=== PATIENT | male | born 1990 | race Caucasian/White ===

== ENCOUNTER 2022-04-03 19:37 | Emergency (ER) | payer BC, OTHER ==
[2022-04-03] MEDS ORDERED: KETOROLAC 30 MG/ML VIAL IVP STA (20:18)
--- NOTE | 2022-04-03 20:22 | ED Back Pain ---
General Chief Complaint: Back Problems Stated Complaint: LOWER BACK PAIN Nursing Triage Note: PT ARRIVAL TO ER VIA PRIVATE VEHICLE WITH COMPLAINTS OF BACK PAIN SINCE 10 AM. PAIN TO BOTH SIDES ON LOWER BACK. PT DENIES TRAUMA OR INJURY. PAIN STARTED THIS AM. PAIN EASED UP AND PATIENT WAS ABLE TO NAP EARLIER, BUT WHEN GETTING UP FROM BED, PAIN IMMEDIATLEY STARTED AGAIN. PT HAD THIS HAPPEN A WHILE BACK AND SCANS AND XRAYS FOUND NOTHING. PAIN AT A 9/10 AND IS SHARP/STABBING. Source of Information: Patient (SOMEWHAT VAGUE HISTORIAN) History of Present Illness Date Seen by Provider: Apr 03, 2022 Time Seen by Provider: 20:10 Initial Comments PT ARRIVES VIA POV--HERE VISITING FROM OUT OF TOWN C/O BILATERAL FLANK PAIN SINCE 10 AM TODAY PAIN RADIATES AROUND TO BOTH SIDES OF ABDOMEN + SWEATS AND NAUSEA WHEN PAIN IS BAD HAS HAD DECREASED URINE OUTPUT TODAY, BUT NO PAIN ON URINATION. STATES HE HAS BEEN DRINKING ALOT OF WATER. NO INJURY OR UNUSUAL ACTIVITY. NO PARESTHESIAS OR MOTOR DEFICITS NO LOSS OF BOWEL OR BLADDER CONTROL STATES HE HAD THIS SAME THING ABOUT A YEAR AGO, AND WENT TO ER AND HE STATES THEY DIDN'T FIND ANYTHING. STATES THEY GAVE HIM MUSCLE RELAXANTS AND PAIN PILLS AND HIS SYMPTOMS WENT AWAY. STATES HE IS HERE AT HIS [facility], AND FOUND SOME "HYDROCODONE 100 MG TABLETS" IN THEIR BATHROOM CABINET AND HE TOOK ONE AROUND 1300 TODAY--NO RELIEF. Other Comments PCP IN [place], [place] Allergies and Home Medications Allergies Coded Allergies: No Known Drug Allergies (Unverified , 04/03/22) Patient Home Medication List Cyclobenzaprine HCl (Cyclobenzaprine HCl) 10 Mg Tablet, 10 MG PO Q8H PRN for SPASMS Prescribed by: SEBASTIAN GARCIA on 04/03/222134 Naproxen (Naproxen) 500 Mg Tablet.dr, 500 MG PO BID Prescribed by: SEBASTIAN GARCIA on 04/03/222134 Review of Systems Constitutional: see HPI Respiratory: no symptoms reported Cardiovascular: no symptoms reported Gastrointestinal: see HPI Genitourinary: see HPI Musculoskeletal: see HPI Skin: no symptoms reported Psychiatric/Neurological: No Symptoms Reported Past Ehztqxg-Vbmtgk-Jvxglg Hx Patient Social History Tobacco Use?: Yes Tobacco type used: Cigarettes Smoking Status: Current Everyday Smoker Use of E-Cig and/or Vaping dev: No 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, ADDERALL ABUSE TEEN) Substance type: Misuse of prescript meds, Marijuana Alcohol Use?: Yes Alcohol type: Beer, Hard Liquor Alcohol Frequency: Once in a while Pt feels they are or have been: No Immunizations Up To Date Influenza Vaccine Up-to-Date: No; Not Current Past Medical History Surgeries: Yes (WISDOM TEETH, CYST FROM AXILLA, COLONOSCOPY/POLYPECTOMY) Adenoidectomy, Tonsillectomy Respiratory: No Cardiac: Yes Hypertension Neurological: No Genitourinary: No Gastrointestinal: Yes Polyps Musculoskeletal: No Endocrine: No HEENT: Yes (S/P WISDOM TEETH REMOVED AND T&A) Tonsilitis Cancer: No Psychosocial: No Integumentary: No Blood Disorders: No Physical Exam Vital Signs Vital Signs - First Documented 04/03/22 19:59 Temp 36.8 Pulse 86 Resp 16 B/P (MAP) 156/99 (118) Pulse Ox 97 O2 Delivery Room Air Capillary Refill : Less Than 3 Seconds Height, Weight, BMI Height: '" Weight: lbs. oz. kg; BMI Method: General Appearance: No Apparent Distress, WD/WN, Other (PACING IN ROOM) Neck: Normal Inspection Cardiovascular: Regular Rate, Rhythm Respiratory: Normal Breath Sounds Gastrointestinal: Soft, Tenderness (BILATERAL FLANK TENDERNESS) Back: No Vertebral Tenderness, CVA Tenderness (L), CVA Tenderness (R) Extremity: Normal Range of Motion, No Pedal Edema Neurologic/Psychiatric: Alert, Oriented x3, No Motor/Sensory Deficits, recreation programmer II- XII Norm as Tested Skin: Normal Color, Warm/Dry; No Rash Progress/Results/Core Measures Results/Orders Lab Results Laboratory Tests Test 04/03/22 20:34 04/03/22 20:52 Range/Units White Blood Count 12.7 H 4.3-11.0 10^3/uL Red Blood Count 5.11 4.30-5.52 10^6/uL Hemoglobin 15.5 13.3-17.7 g/dL Hematocrit 45 40-54 % Mean Corpuscular Volume 88 80-99 fL Mean Corpuscular Hemoglobin 30 25-34 pg Mean Corpuscular Hemoglobin Concent 35 32-36 g/dL Red Cell Distribution Width 11.9 10.0-14.5 % Platelet Count 209 130-400 10^3/uL Mean Platelet Volume 9.3 9.0-12.2 fL Immature Granulocyte % (Auto) 0 % Neutrophils (%) (Auto) 71 42-75 % Lymphocytes (%) (Auto) 14 12-44 % Monocytes (%) (Auto) 11 0-12 % Eosinophils (%) (Auto) 4 0-10 % Basophils (%) (Auto) 0 0-10 % Neutrophils # (Auto) 9.0 H 1.8-7.8 10^3/uL Lymphocytes # (Auto) 1.8 1.0-4.0 10^3/uL Monocytes # (Auto) 1.4 H 0.0-1.0 10^3/uL Eosinophils # (Auto) 0.5 H 0.0-0.3 10^3/uL Basophils # (Auto) 0.0 0.0-0.1 10^3/uL Immature Granulocyte # (Auto) 0.1 0.0-0.1 10^3/uL Sodium Level 140 135-145 MMOL/L Potassium Level 4.3 3.6-5.0 MMOL/L Chloride Level 103 98-107 MMOL/L Carbon Dioxide Level 25 21-32 MMOL/L Anion Gap 12 5-14 MMOL/L Blood Urea Nitrogen 19 H 7-18 MG/DL Creatinine 1.22 0.60-1.30 MG/DL Estimat Glomerular Filtration Rate 81 BUN/Creatinine Ratio 16 Glucose Level 116 H 70-105 MG/DL Calcium Level 9.6 8.5-10.1 MG/DL Corrected Calcium 8.5-10.1 MG/DL Total Bilirubin 0.4 0.1-1.0 MG/DL Aspartate Amino Transf (AST/SGOT) 25 5-34 U/L Alanine Aminotransferase (ALT/SGPT) 67 H 0-55 U/L Alkaline Phosphatase 100 40-136 U/L Total Protein 7.4 6.4-8.2 GM/DL Albumin 4.6 H 3.2-4.5 GM/DL Serum Alcohol < 10 <10 MG/DL Urine Color YELLOW Urine Clarity CLEAR Urine pH 5.5 5-9 Urine Specific [place] 1.015 L 1.016-1.022 Urine Protein NEGATIVE NEGATIVE Urine Glucose (UA) NEGATIVE NEGATIVE Urine Ketones NEGATIVE NEGATIVE Urine Nitrite NEGATIVE NEGATIVE Urine Bilirubin NEGATIVE NEGATIVE Urine Urobilinogen 0.2 < = 1.0 MG/DL Urine Leukocyte Esterase NEGATIVE NEGATIVE Urine RBC (Auto) NEGATIVE NEGATIVE Urine RBC NONE /HPF Urine WBC NONE /HPF Urine Squamous Epithelial Cells NONE /HPF Urine Crystals NONE /LPF Urine Bacteria NEGATIVE /HPF Urine Casts NONE /LPF Urine Mucus NEGATIVE /LPF Urine Culture Indicated NO Urine Opiates Screen POSITIVE H NEGATIVE Urine Oxycodone Screen NEGATIVE NEGATIVE Urine Methadone Screen NEGATIVE NEGATIVE Urine Propoxyphene Screen NEGATIVE NEGATIVE Urine Barbiturates Screen NEGATIVE NEGATIVE Ur Tricyclic Antidepressants Screen NEGATIVE NEGATIVE Urine Phencyclidine Screen NEGATIVE NEGATIVE Urine Amphetamines Screen NEGATIVE NEGATIVE Urine Methamphetamines Screen NEGATIVE NEGATIVE Urine Benzodiazepines Screen NEGATIVE NEGATIVE Urine Cocaine Screen NEGATIVE NEGATIVE Urine Cannabinoids Screen NEGATIVE NEGATIVE My Orders Orders - SEBASTIAN GARCIA DO Ed Iv/Invasive Line Start (04/03/22 20:18) Ed Iv/Invasive Line Start (04/03/22 20:18) Lactated Ringers (Lr 1000 Ml Iv Solution (04/03/22 20:30) Alcohol (04/03/22 20:18) Cbc With Automated Diff (04/03/22 20:18) Comprehensive Metabolic Panel (04/03/22 20:18) Drug Screen Stat (Urine) (04/03/22 20:18) Ua Culture If Indicated (04/03/22 20:18) Ct Abd/Pelvis Wo(Kidney Stone) (04/03/22 20:18) Abdomen/Kub 1view (04/03/22 20:18) Ketorolac Injection (Toradol Injection) (04/03/22 20:18) Rx-Cyclobenzaprine Tablet (Rx-Flexeril T (04/03/22 21:35) Rx-Naproxen (Rx-Naprosyn) (04/03/22 21:35) Medications Given in ED Current Medications Medications Dose Ordered Sig/[place] Route Start Time Stop Time Status Last Admin Dose Admin Lactated Ringer's 1,000 ml @ 0 mls/hr Q0M ONCE IV 04/03/22 20:30 04/03/22 20:31 DC 04/03/22 20:55 0 MLS/HR Vital Signs/I&O 04/03/22 04/03/22 19:59 21:35 Temp 36.8 Pulse 86 82 Resp 16 16 B/P (MAP) 156/99 (118) 153/91 Pulse Ox 97 99 O2 Delivery Room Air Room Air Blood Pressure Mean: 118 Progress Progress Note : Progress Note GIVEN TORADOL FOR PAIN PT IS FEELING BETTER, IS ABLE TO LAY FLAT AND OUTSTRETCHED. REVIEWED TEST RESULTS, ANTICIPATED COURSE, SYMPTOMATIC TREATMENT, NEED FOR FOLLOW UP AND RETURN PRECAUTIONS Diagnostic Imaging Comments ABDOMEN XRAY--PER RADIOLOGIST REPORT AT 2055 FINDINGS: There is a moderate amount of gas and stool throughout the colon. Nonobstructive bowel gas pattern. No radiopaque foreign body. The osseous structures are intact. IMPRESSION: Moderate stool burden without other acute abnormality in the abdomen. CT ABDOMEN/PELVIS--PER RADIOLOGIST REPORT AT 2055 FINDINGS: Lung bases: The lung bases are clear. Solid organs: There is diffuse hypoattenuation of the liver which can be seen with hepatic steatosis. Likely focal fatty sparing along the gallbladder. The gallbladder is normal. There is no biliary ductal dilation. Pancreas is normal. Spleen is normal. Adrenal glands are normal. The kidneys are normal without visualized calculus or hydronephrosis. Bowel: The stomach and small bowel are normal without obstruction. The colon and appendix are normal. Peritoneum: There is no intraperitoneal free fluid or free air. No suspicious lymphadenopathy. There are a few prominent retroperitoneal and mesenteric lymph nodes which are not pathologically enlarged but are greater in number than expected. Vasculature: Normal without aneurysm. Musculoskeletal: No suspicious osseous lesion or compression fracture. Pelvis: The prostate gland is normal. The urinary bladder is normal. IMPRESSION: 1. No acute abnormality in the abdomen or pelvis. 2. Hepatic steatosis. 3. Prominent but indeterminate mesenteric and retroperitoneal lymph nodes which are not pathologically enlarged. These may be reactive but can also be seen with mesenteric adenitis in the appropriate clinical setting. Reviewed: Reviewed by Me Departure Impression Primary Impression: Back pain Disposition: HOME, SELF-CARE Condition: Improved Departure-Patient Inst. Decision time for Depature: 21:32 Referrals: NO,LOCAL PHYSICIAN (PCP/Family) Primary Care Physician Patient Instructions: Low Back Pain (DC) Add. Discharge Instructions: HOME, REST MOIST HEAT TO AREA AT 20 MINUTE INTERVALS NO LIFTING OVER 10 LBS, NO TWISTING OR BENDING AT WAIST FOLLOW UP WITH YOUR DR ON TUESDAY IF NO BETTER All discharge instructions reviewed with patient and/or family. Voiced understanding. Scripts Naproxen (Naproxen) 500 Mg Tablet. 500 MG PO BID, #20 TAB Prov: SEBASTIAN GARCIA DO 04/03/22 Cyclobenzaprine HCl (Cyclobenzaprine HCl) 10 Mg Tablet 10 MG PO Q8H PRN for SPASMS, #15 TAB 0 Refills Prov: SEBASTIAN GARCIA DO 04/03/22 SEBASTIAN GARCIA DO Apr 03, 2022 20:22
[2022-04-03] MEDS ORDERED: LACTATED RINGERS 1,000 ML IV ONE (20:30)
--- NOTE | 2022-04-03 20:47 | Diagnostic Imaging Report ---
EXAMINATION: Abdomen 1 view HISTORY: Abdomen pain COMPARISON: None available. FINDINGS: There is a moderate amount of gas and stool throughout the colon. Nonobstructive bowel gas pattern. No radiopaque foreign body. The osseous structures are intact. IMPRESSION: Moderate stool burden without other acute abnormality in the abdomen. Dictated by: Dictated on workstation # [id number]
--- NOTE | 2022-04-03 20:56 | Diagnostic Imaging Report ---
EXAMINATION: CT abdomen and pelvis without contrast. TECHNIQUE: Multiple contiguous axial images were obtained through the abdomen and pelvis without the use of intravenous contrast. All CT scans use one or more of the following dose optimizing techniques: automated exposure control, MA and/or KvP adjustment based on patient size and exam type or iterative reconstruction. HISTORY: Flank pain, kidney stone suspected COMPARISON: None available. FINDINGS: Lung bases: The lung bases are clear. Solid organs: There is diffuse hypoattenuation of the liver which can be seen with hepatic steatosis. Likely focal fatty sparing along the gallbladder. The gallbladder is normal. There is no biliary ductal dilation. Pancreas is normal. Spleen is normal. Adrenal glands are normal. The kidneys are normal without visualized calculus or hydronephrosis. Bowel: The stomach and small bowel are normal without obstruction. The colon and appendix are normal. Peritoneum: There is no intraperitoneal free fluid or free air. No suspicious lymphadenopathy. There are a few prominent retroperitoneal and mesenteric lymph nodes which are not pathologically enlarged but are greater in number than expected. Vasculature: Normal without aneurysm. Musculoskeletal: No suspicious osseous lesion or compression fracture. Pelvis: The prostate gland is normal. The urinary bladder is normal. IMPRESSION: 1. No acute abnormality in the abdomen or pelvis. 2. Hepatic steatosis. 3. Prominent but indeterminate mesenteric and retroperitoneal lymph nodes which are not pathologically enlarged. These may be reactive but can also be seen with mesenteric adenitis in the appropriate clinical setting. Dictated by: Dictated on workstation # [id number]
[2022-04-03 20:59] LABS: BILIRUBIN,URINE NEGATIVE (NEGATIVE); CLARITY,URINE CLEAR; COLOR,URINE YELLOW; GLUCOSE, URINE (UA) NEGATIVE (NEGATIVE); KETONES,URINE NEGATIVE (NEGATIVE); LEUKOCYTE ESTERASE ,URINE NEGATIVE (NEGATIVE); NITRITE,URINE NEGATIVE (NEGATIVE); PH,URINE 5.5 (5-9); PROTEIN,URINE NEGATIVE (NEGATIVE)
[2022-04-03 21:02] LABS: BASOPHILS % (AUTO) 0 % (0-10); EOSINOPHILS # (AUTO) 0.5 10^3/uL (0.0-0.3); EOSINOPHILS % (AUTO) 4 % (0-10); HEMATOCRIT 45 % (40-54); HEMOGLOBIN 15.5 g/dL (13.3-17.7); LYMPHOCYTES # (AUTO) 1.8 10^3/uL (1.0-4.0); LYMPHOCYTES % (AUTO) 14 % (12-44); MEAN CORPUSCULAR HEMOGLOBIN 30 pg (25-34); MEAN CORPUSCULAR HGB CONC 35 g/dL (32-36); MEAN CORPUSCULAR VOLUME 88 fL (80-99); MEAN PLATELET VOLUME 9.3 fL (9.0-12.2); MONOCYTES # (AUTO) 1.4 10^3/uL (0.0-1.0); MONOCYTES % (AUTO) 11 % (0-12); NEUTROPHILS % (AUTO) 71 % (42-75); PLATELET COUNT 209 10^3/uL (130-400); WHITE BLOOD COUNT 12.7 10^3/uL (4.3-11.0)
[2022-04-03 21:07] LABS: BACTERIA,URINE NEGATIVE /HPF
[2022-04-03 21:11] LABS: AMPHETAMINE SCREEN, URINE NEGATIVE (NEGATIVE); BARBITURATE SCREEN URINE NEGATIVE (NEGATIVE); BENZODIAZEPINES SCREEN URINE NEGATIVE (NEGATIVE); CANNABINOID SCREEN, URINE NEGATIVE (NEGATIVE); COCAINE SCREEN URINE NEGATIVE (NEGATIVE); METHADONE STAT NEGATIVE (NEGATIVE); OPIATE SCREEN URINE POSITIVE (NEGATIVE); OXYCODONE STAT NEGATIVE (NEGATIVE); PROPOXYPHENE STAT NEGATIVE (NEGATIVE); TRICYCLIC ANTIDEPRESSANTS SCRE NEGATIVE (NEGATIVE)
[2022-04-03 21:25] LABS: ALANINE AMINOTRANSFERASE 67 U/L (0-55); ALBUMIN 4.6 GM/DL (3.2-4.5); ALKALINE PHOSPHATASE 100 U/L (40-136); BILIRUBIN,TOTAL 0.4 MG/DL (0.1-1.0); BUN/CREATININE RATIO 16; CALCIUM 9.6 MG/DL (8.5-10.1); CARBON DIOXIDE 25 MMOL/L (21-32); CHLORIDE 103 MMOL/L (98-107); CREATININE SERUM 1.22 MG/DL (0.60-1.30); GFR ESTIMATED 81; GLUCOSE 116 MG/DL (70-105); POTASSIUM 4.3 MMOL/L (3.6-5.0); SODIUM 140 MMOL/L (135-145); TOTAL PROTEIN 7.4 GM/DL (6.4-8.2)
[2022-04-03 21:35] VITALS: BP 153/91
[2022-04-03] MEDS ORDERED: NAPR500T8 PO (21:35)
[2022-04-03] MEDS ORDERED: RX-CYCLOBENZAPRINE 10 MG (FLEXERIL) TAB PPK#3 PO STA (21:35)
[2022-04-03] MEDS ORDERED: RX-NAPROXEN (NAPROSYN) 250 MG TAB PPK#4 PO STA (21:35)
[2022-04-03] MEDS ORDERED: CYCL10TA25 PO (21:35)
== END 2022-04-03 21:54 | disposition home or self-care (01) ==
LOC: ER 19:40
DX: M54.50 Low back pain, unspecified (principal); R10.9 Unspecified abdominal pain; F17.210 Nicotine dependence, cigarettes, uncomplicated; Z28.310 Unvaccinated for COVID-19
CPT/HCPCS: 36415; 74018; 74176; 80053; 80306; 80320; 81000; 85025